=== PATIENT | male | born 1960 | race Caucasian/White ===

== ENCOUNTER 2024-05-05 05:30 | Day surgery (SDC) | payer OTHER ==
[~2024-05-05] VITALS: Ht 160 cm; Wt 77.1 kg
[2024-05-05] MEDS ORDERED: SCOPOLAMINE HYDROBROMIDE 1 MG PATCH .72 H (TRANSDERM-SCOP) TD ONE (05:59)
[2024-05-05] MEDS ORDERED: GABAPENTIN 300 MG CAPSULE ONE (05:59)
[2024-05-05] MEDS ORDERED: oxyCODONE HCL 10 MG TAB.ER.12H PO ONE (05:59)
[2024-05-05] MEDS ORDERED: CELECOXIB 100 MG CAPSULE ONE (05:59)
[2024-05-05] MEDS ORDERED: ACETAMINOPHEN 500 MG TABLET ONE (05:59)
[2024-05-05] MEDS ORDERED: CEFAZOLIN SOD 2 GM in D5W 50 ML IV ONE (06:00)
[2024-05-05] MEDS: GABAPENTIN 300 MG CAPSULE PO ONE (06:18)
[2024-05-05] MEDS: ACETAMINOPHEN 500 MG TABLET PO ONE (06:18)
[2024-05-05] MEDS: CELECOXIB 100 MG CAPSULE PO ONE (06:18)
[2024-05-05] MEDS: SCOPOLAMINE HYDROBROMIDE 1 MG PATCH .72 H (TRANSDERM-SCOP) TD ONE (06:18)
[2024-05-05] MEDS ORDERED: ceFAZolin SODIUM 1 GM VIAL ONE (06:55)
[2024-05-05] MEDS: oxyCODONE HCL 10 MG TAB.ER.12H PO ONE (06:55)
[2024-05-05] MEDS ORDERED: DIPHENHYDRAMINE HCL 25 MG CAPSULE PO PRN (07:00)
[2024-05-05] MEDS ORDERED: METOCLOPRAMIDE HCL 10 MG/2 ML VIAL IVP PRN ×2 (07:00→08:00)
[2024-05-05] MEDS ORDERED: LACTULOSE 20 GM/30 ML UDC PO PRN (07:00)
[2024-05-05] MEDS ORDERED: BISACODYL 10 MG/SUPPOSITORY RC PRN (07:00)
[2024-05-05 09:37] VITALS: BP_SYST 120; PULSE 69; RESP 18; TEMP 97.5; O2SAT 98
[2024-05-05] MEDS ORDERED: HYDROmorphone 1 MG/ML INJ. CARTRIDGE IVP PRN ×5 (10:45→11:00)
[2024-05-05] MEDS ORDERED: MEPERIDINE HCL/PF 25 MG/ML DISP.SYRIN IVP PRN (10:45)
[2024-05-05] MEDS ORDERED: LR 1,000 ML IV SCH (10:45)
[2024-05-05] MEDS ORDERED: traMADol HCL HCL 50 MG TABLET (ULTRAM) PO PRN (11:00)
[2024-05-05] MEDS ORDERED: oxyCODONE HCL 5 MG TABLET PO PRN ×2 (11:00)
[2024-05-05] MEDS ORDERED: LORATADINE 10 MG TABLET PO PRN (11:00)
[2024-05-05] MEDS ORDERED: ceFAZolin SODIUM 2 GM in D5W 50 ML IV SCH (11:15)
[2024-05-05] MEDS: TAMSULOSIN HCL 0.4 MG CAP PO ONE (11:15)
[2024-05-05] MEDS ORDERED: ONDANSETRON HCL 4 MG/2 ML VIAL IVP PRN (11:45)
[2024-05-05] MEDS ORDERED: KETOROLAC TROMETHAMINE 10 MG TABLET (TORADOL) PO SCH (14:00)
[2024-05-05] MEDS ORDERED: ACETAMINOPHEN 500 MG TABLET PO SCH (14:00)
[2024-05-05] MEDS ORDERED: SENNOSIDES/DOCUSATE SODIUM 1 TAB TABLET(SENOKOT-S) PO SCH (21:00)
[2024-05-06] MEDS ORDERED: TAMSULOSIN HCL 0.4 MG CAP PO SCH (09:00)
[2024-05-06] MEDS ORDERED: APIXABAN 2.5 MG TABLET PO SCH (09:00)
[2024-05-06] MEDS ORDERED: CELECOXIB 200 MG CAPSULE PO SCH (11:00)
== END 2024-05-05 12:45 | disposition home or self-care (01) ==
LOC: SDS 05:30 → SMU 05:30 → EDSTATUS 07:30 → SDS 12:45
PROVIDERS: ATTEND Student in an Organized Health Care Education/Training Program
DX: M16.11 Unilateral primary osteoarthritis, right hip (principal); M25.751 Osteophyte, right hip; M25.551 Pain in right hip; I25.2 Old myocardial infarction; Z98.890 Other specified postprocedural states; Z79.899 Other long term (current) drug therapy
CPT/HCPCS: 87081; 27130; 97162; 64450; 72170; 97110; 97530; 97116; 88304; 88311; J3490 ×5; J0690; J0696; J1100; J2405; J2704; J3010; J7060 ×2; A4649; C1776 ×4; C1713; 76001; 96379